=== PATIENT | female | born 1965 | race Caucasian/White ===

== ENCOUNTER 2017-08-06 09:19 | Emergency (ER) | payer OTHER ==
[~2017-08-06 09:19] MED LIST: GUAI600T47 PO; IBUP200C6 PO; PSEU120T10 PO
[2017-08-06] MEDS ORDERED: IV NORMAL SALINE 1,000ML 1,000 ML IV SCH (09:47)
--- NOTE | 2017-08-06 10:02 | PHYS DOC ---
Past History Past Medical History: Diverticulitis, Other Past Surgical History: Smoking: Non-smoker Alcohol Use: None Drug Use: None Adult General Chief Complaint Chief Complaint: RECTAL BLEED HPI HPI 52-year-old female presents with 2 day history of abdominal pain and 1 day history of bright red rectal bleeding. The patient had diffuse, BMP, lower abdominal pain that started yesterday and increased by eating. Overnight she had several bouts of diarrhea. She noticed this morning that she had some bright red blood in her stool. She had diverticulitis several years ago and states that the symptoms seem very similar. She denies fever or chills. She has no other systemic symptoms. She has a history of GERD previously treated by medication. She has changed her diet and no longer needs medication. She has never had a GI bleed. Her colonoscopy 3 years ago showed diverticula, but no other abnormalities as far she is aware. Review of Systems Review of Systems Constitutional: Denies fever or chills [] Eyes: Denies change in visual acuity, redness, or eye pain [] HENT: Denies nasal congestion or sore throat [] Respiratory: Denies cough or shortness of breath [] Cardiovascular: No additional information not addressed in HPI [] GI: Lower abdominal pain and diarrhea [] : Denies dysuria or hematuria [] Musculoskeletal: Denies back pain or joint pain [] Integument: Denies rash or skin lesions [] Neurologic: Denies headache, focal weakness or sensory changes [] Endocrine: Denies polyuria or polydipsia [] All other systems were reviewed and found to be within normal limits, except as documented in this note. Current Medications Current Medications Current Medications Medications (Trade) Dose Ordered Sig/Gini Start Time Stop Time Status Last Admin Dose Admin Iohexol (Omnipaque 300 Mg/ml) 75 ml 1X ONCE 08/06/17 10:00 08/06/17 10:01 UNV Sodium Chloride 1,000 ml @ 1,000 mls/hr Q1H 08/06/17 09:47 08/06/17 10:46 Allergies Allergies Allergies Coded Allergies Type Severity Reaction Last Updated Verified No Known Drug Allergies 06/09/13 No Physical Exam Physical Exam Constitutional: Well developed, well nourished, no acute distress, non-toxic appearance. [] HENT: Normocephalic, atraumatic, bilateral external ears normal, oropharynx moist, no oral exudates, nose normal. [] Eyes: PERRLA, EOMI, conjunctiva normal, no discharge. [] Neck: Normal range of motion, no tenderness, supple, no stridor. [] Cardiovascular:Heart rate regular rhythm, no murmur [] Lungs & Thorax: Bilateral breath sounds clear to auscultation [] Abdomen: Bowel sounds normal, soft, mild diffuse lower abdominal tenderness, no masses, no pulsatile masses. [] Skin: Warm, dry, no erythema, no rash. [] Back: No tenderness, no CVA tenderness. [] Extremities: No tenderness, no cyanosis, no clubbing, ROM intact, no edema. [] Neurologic: Alert and oriented X 3, normal motor function, normal sensory function, no focal deficits noted. [] Psychologic: Affect normal, judgement normal, mood normal. Rectal: No external hemorrhoids, no obvious blood, no pain with exam [] Current Patient Data Vital Signs Vital Signs Date Time Temp Pulse Resp B/P (MAP) Pulse Ox O2 Delivery O2 Flow Rate FiO2 08/06/17 09:19 97.9 79 18 96 Room Air Lab Results Stool occult was positive. EKG EKG [] Radiology/Procedures Radiology/Procedures CT abdomen and pelvis with contrast. HISTORY: Mid abdominal pain, history of diverticulitis CT scan of the abdomen and pelvis was done using 75 mL Omnipaque 300 contrast. The lung bases are clear. There is no effusion. 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 Liver is normal in appearance. There is no calcified gallstone. Spleen and adrenal glands are normal. Pancreas is normal. There is no mass or hydronephrosis in the kidneys. There is no ureteral calculus. There is no free air or bowel obstruction. Appendix is normal. Uterus and ovaries are normal. There is no ascites or adenopathy. The colon is not distended. There is not evidence of an acute diverticulitis. There is no bowel obstruction. There is slight wall thickening of the descending colon, a mild colitis would be possible. IMPRESSION: 1. Mild thickening of the wall the descending colon possible mild colitis. 2. There is not evidence of a diverticulitis. 3. No abdominal or pelvic mass or other acute finding noted. PQRS Compliance Statement: One or more of the following individualized dose reduction techniques were utilized for this examination: 1. Automated exposure control 2. Adjustment of the mA and/or kV according to patient size 3. Use of iterative reconstruction technique Electronically signed by: Mervin Lancaster MD (08/06/2017 10:45 AM) [facility][] Course & Med Decision Making Course & Med Decision Making Pertinent Labs and Imaging studies reviewed. (See chart for details) The patient's CT does not show diverticulitis, however it does show evidence for a mild colitis. We'll treat the patient with Cipro and Flagyl for 10 days in order to prevent further progression of her illness. [] Dragon Disclaimer Dragon Disclaimer This electronic medical record was generated, in whole or in part, using a voice recognition dictation system. Departure Departure: Referrals: ALMA YBARRA MD (PCP) Scripts Metronidazole (FLAGYL) 500 Mg Tablet 1 TAB PO TID for 10 Days, #30 TAB Prov: CLAUDIA ROWE DO 08/06/17 Ciprofloxacin Hcl (CIPRO) 500 Mg Tablet 1 TAB PO BID, #20 TAB Prov: CLAUDIA ROWE DO 08/06/17 CLAUDIA ROWE DO August 06, 2017 10:02
[2017-08-06] MEDS ORDERED: IOHEXOL 300 MG/ML 75 ML VIAL. IV ONE (10:15)
[2017-08-06] MEDS ORDERED: CONTRAST GIVEN MC PRN (10:15)
[2017-08-06 10:26] LABS: BASO # 0.1 x10^3/uL (0.0-0.2); BASO % 1 % (0-3); EOS # 0.2 x10^3/uL (0.0-0.7); EOS % 4 % (0-3); HEMATOCRIT 45.2 % (36.0-47.0); HEMOGLOBIN 15.7 g/dL (12.0-15.5); LYMPH % 17 % (24-48); MEAN CORPUSCULAR HEMOGLOBIN 31 pg (25-35); MEAN CORPUSCULAR HGB CONC 35 g/dL (31-37); MEAN CORPUSCULAR VOLUME 90 fL (79-100); MONO # 0.3 x10^3/uL (0.0-1.1); MONO % 5 % (0-9); NEUT # 4.5 x10^3uL (1.8-7.7); NEUT % 74 % (31-73); PLATELET COUNT 266 x10^3/uL (140-400); RED BLOOD COUNT 5.02 x10^6/uL (3.50-5.40); RED CELL DISTRIBUTION WIDTH 12.4 % (11.5-14.5); WHITE BLOOD COUNT 6.1 x10^3/uL (4.0-11.0)
[2017-08-06] MEDS ORDERED: HYDROmorphone PF 2 MG/ML VIAL IM ONE (10:30)
[2017-08-06 10:48] LABS: BILIRUBIN,URINE NEG (NEG); CLARITY,URINE CLEAR; COLOR,URINE YELLOW; GLUCOSE,URINE NEG (NEG); NITRITE,URINE NEG (NEG); UROBILINOGEN,URINE 0.2 mg/dL (0.2 mg/dL)
--- NOTE | 2017-08-06 10:48 | RAD ---
CT abdomen and pelvis with contrast. HISTORY: Mid abdominal pain, history of diverticulitis CT scan of the abdomen and pelvis was done using 75 mL Omnipaque 300 contrast. The lung bases are clear. There is no effusion. 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 Liver is normal in appearance. There is no calcified gallstone. Spleen and adrenal glands are normal. Pancreas is normal. There is no mass or hydronephrosis in the kidneys. There is no ureteral calculus. There is no free air or bowel obstruction. Appendix is normal. Uterus and ovaries are normal. There is no ascites or adenopathy. The colon is not distended. There is not evidence of an acute diverticulitis. There is no bowel obstruction. There is slight wall thickening of the descending colon, a mild colitis would be possible. IMPRESSION: 1. Mild thickening of the wall the descending colon possible mild colitis. 2. There is not evidence of a diverticulitis. 3. No abdominal or pelvic mass or other acute finding noted. PQRS Compliance Statement: One or more of the following individualized dose reduction techniques were utilized for this examination: 1. Automated exposure control 2. Adjustment of the mA and/or kV according to patient size 3. Use of iterative reconstruction technique Electronically signed by: Mervin Lancaster MD (08/06/2017 10:45 AM) [facility]
[2017-08-06] MEDS ORDERED: METR500T PO (11:01)
[2017-08-06] MEDS ORDERED: CIPR500T94 PO (11:01)
[2017-08-06 11:14] LABS: FECAL OB PT POSITIVE (NEG)
[2017-08-06 11:20] VITALS: BP 132/82
== END 2017-08-06 11:27 | disposition home or self-care (01) ==
LOC: ER 09:19
DX: K52.9 Noninfective gastroenteritis and colitis, unspecified (principal); K21.9 Gastro-esophageal reflux disease without esophagitis; Z98.890 Other specified postprocedural states
CPT/HCPCS: 36415; 74177; 80048; 81003; 82274; 85025; 96360; 96372; 99285; J1170; Q9967; J7030

== ENCOUNTER 2019-09-23 19:40 | Emergency (ER) | payer OTHER ==
[~2019-09-23] VITALS: Ht 162.6 cm; Wt 86.3 kg
[~2019-09-23 19:40] MED LIST changes: +CIPR500T94 PO; +IBUP-1390 PO; -IBUP200C6 PO; +METR500T PO
--- NOTE | 2019-09-23 20:26 | PHYS DOC ---
Past History Past Medical History: Diverticulitis Past Surgical History: Smoking: Non-smoker Alcohol Use: None Drug Use: None General Adult EDM: Chief Complaint: ABDOMINAL PAIN HPI: HPI: 54-year-old female presents with abdominal pain and diarrhea. The patient has been having lower abdominal pain worse in the right lower quadrant all day. She is also had multiple episodes of diarrhea. She comes in tonight because she has had some bright red blood in her stool. There is no pain with defecation. Her anus is sore at this time. Patient has a history of diverticulitis several years ago. She still has her appendix. The abdominal pain is a deep cramping sensation moderate in intensity. She denies fever chills. Review of Systems: Review of Systems: Constitutional: Denies fever or chills Eyes: Denies change in visual acuity HENT: Denies nasal congestion or sore throat Respiratory: Denies cough or shortness of breath Cardiovascular: Denies chest pain or edema GI: RLQ abdominal pain, nausea, bloody stools and diarrhea : Denies dysuria Musculoskeletal: Denies back pain or joint pain Integument: Denies rash Neurologic: Denies headache, focal weakness or sensory changes Endocrine: Denies polyuria or polydipsia Lymphatic: Denies swollen glands Psychiatric: Denies depression or anxiety Heart Score: Risk Factors: Risk Factors: DM, Current or recent (<one month) smoker, HTN, HLP, family history of CAD, obesity. Risk Scores: Score 0 - 3: 2.5% MACE over next 6 weeks - Discharge Home Score 4 - 6: 20.3% MACE over next 6 weeks - Admit for Clinical Observation Score 7 - 10: 72.7% MACE over next 6 weeks - Early Invasive Strategies Current Medications: Current Meds: Current Medications Medications (Trade) Dose Ordered Sig/Gini Start Time Stop Time Status Last Admin Dose Admin Sodium Chloride 1,000 ml @ 1,000 mls/hr 1X ONCE 09/23/19 20:30 09/23/19 21:29 UNV 09/23/19 20:19 1,000 MLS/HR Allergies: Allergies: Allergies Coded Allergies Type Severity Reaction Last Updated Verified No Known Drug Allergies 06/09/13 No Physical Exam: PE: Constitutional: Well developed, obese, well nourished, no acute distress, non-toxic appearance. [] HENT: Normocephalic, atraumatic, bilateral external ears normal, oropharynx moist, no oral exudates, nose normal. [] Eyes: PERRLA, EOMI, conjunctiva normal, no discharge. [] Neck: Normal range of motion, no tenderness, supple, no stridor. [] Cardiovascular: Heart rate regular rhythm, no murmur [] Lungs & Thorax: Bilateral breath sounds clear to auscultation [] Abdomen: Bowel sounds normal, soft, RLQ and suprapubic tenderness, no masses, no pulsatile masses. [] Skin: Warm, dry, no erythema, no rash. [] Back: No tenderness, no CVA tenderness. [] Extremities: No tenderness, no cyanosis, no clubbing, ROM intact, no edema. [] Neurologic: Alert and oriented X 3, normal motor function, normal sensory function, no focal deficits noted. [] Psychologic: Affect normal, judgement normal, mood normal. [] Current Patient Data: Vital Signs: Vital Signs Date Time Temp Pulse Resp B/P (MAP) Pulse Ox O2 Delivery O2 Flow Rate FiO2 09/23/19 19:50 99.2 95 18 132/100 (111) 97 Room Air EKG: EKG: [] Radiology/Procedures: Radiology/Procedures: [] Impressions: CT abdomen and pelvis with contrast PQRS statement: CT scans at this facility use dose reduction including either automated exposure control, iterative reconstructions, and /or weight based radiation dosing via mA and kV modification when appropriate to reduce radiation dose to as low as reasonably achievable. Contrast: 75 mL Omnipaque 300 intravenous contrast. HISTORY: Right lower quadrant abdominal pain, GI bleeding, diarrhea with blood, diverticulitis. Abdomen findings: Comparison is made to CT abdomen and pelvis August 06, 2017. Lower lumbar disc bulges and bulky facet spurs with spinal canal and neural foraminal stenoses particularly at L4-5 and L5-S1 likely severe. Liver, gallbladder, pancreas, adrenal glands, spleen and kidneys are unremarkable. Mild bilateral renal pelviectasis. Appendix is negative. No bowel obstruction. Sigmoid diverticulitis with segmental colic wall thickening and surrounding edema about a 1 cm inflamed diverticulum no pneumoperitoneum or abscess evident. No abdominal fluid. No adenopathy. Aorta calcified plaque. Pelvis findings: Uterus, ovaries, bladder, rectum and bones are unremarkable. No pelvic fluid or fluid collection. No adenopathy. IMPRESSION: 1. Acute sigmoid diverticulitis. No abscess evident. 2. Appendix is negative. Electronically signed by: Too Germain MD (09/23/2019 9:15 PM) [facility] [place] AND SIGNED BY: TOO GERMAIN MD DATE: 09/23/192114 CC: CLAUDIA ROWE DO; ALMA YBARRA MD ~ Course & Med Decision Making: Course & Med Decision Making Pertinent Labs and Imaging studies reviewed. (See chart for details) The patient's labs are unremarkable. Her CT scan shows acute diverticulitis. I will treat her with Augmentin for 10 days. We will give the first dose in the ED. She is stable for discharge at this time. [] Dragon Disclaimer: Dragon Disclaimer: This electronic medical record was generated, in whole or in part, using a voice recognition dictation system. Departure Departure: Impression: Primary Impression: Diverticulitis Disposition: 01 HOME/RESIDENCE PRIOR TO ADM Condition: STABLE Referrals: ALMA YBARRA MD (PCP) Patient Instructions: Diverticulitis, [id number] Scripts Amoxicillin/Potassium Clav (AUGMENTIN 875-125 TABLET) 1 Each Tablet 1 TAB PO BID for diverticulitis for 10 Days, #20 TAB 0 Refills Prov: CLAUDIA ROWE DO 09/23/19 Justification of Admission: Justification of Admission: Justification of Admission Dx: N/A CLAUDIA ROWE DO Sep 23, 2019 20:26
[2019-09-23] MEDS ORDERED: ONDANSETRON PF 4 MG/2 ML VIAL. IVP ONE (20:30)
[2019-09-23] MEDS ORDERED: IOHEXOL 300 MG/ML 75 ML VIAL. IV ONE (20:30)
[2019-09-23] MEDS ORDERED: IV NORMAL SALINE 1,000ML 1,000 ML IV ONE (20:30)
[2019-09-23 20:32] LABS: BASO # 0.1 x10^3/uL (0.0-0.2); BASO % 1 % (0-3); EOS # 0.2 x10^3/uL (0.0-0.7); EOS % 2 % (0-3); HEMATOCRIT 43.8 % (36.0-47.0); HEMOGLOBIN 14.8 g/dL (12.0-15.5); LYMPH # 1.2 x10^3/uL (1.0-4.8); LYMPH % 11 % (24-48); MEAN CORPUSCULAR HEMOGLOBIN 31 pg (25-35); MEAN CORPUSCULAR HGB CONC 34 g/dL (31-37); MEAN CORPUSCULAR VOLUME 90 fL (79-100); MONO # 0.6 x10^3/uL (0.0-1.1); MONO % 5 % (0-9); NEUT % 82 % (31-73); PLATELET COUNT 264 x10^3/uL (140-400); RED BLOOD COUNT 4.87 x10^6/uL (3.50-5.40); RED CELL DISTRIBUTION WIDTH 12.6 % (11.5-14.5)
[2019-09-23 20:39] LABS: CALCIUM 9.3 mg/dL (8.5-10.1); CREATININE 1.1 mg/dL (0.6-1.0); GFR 51.6; POTASSIUM 3.9 mmol/L (3.5-5.1)
[2019-09-23 20:44] LABS: TOTAL BILIRUBIN 0.5 mg/dL (0.2-1.0); TOTAL PROTEIN 8.1 g/dL (6.4-8.2)
--- NOTE | 2019-09-23 21:18 | RAD ---
CT abdomen and pelvis with contrast PQRS statement: CT scans at this facility use dose reduction including either automated exposure control, iterative reconstructions, and /or weight based radiation dosing via mA and kV modification when appropriate to reduce radiation dose to as low as reasonably achievable. Contrast: 75 mL Omnipaque 300 intravenous contrast. HISTORY: Right lower quadrant abdominal pain, GI bleeding, diarrhea with blood, diverticulitis. Abdomen findings: Comparison is made to CT abdomen and pelvis August 06, 2017. Lower lumbar disc bulges and bulky facet spurs with spinal canal and neural foraminal stenoses particularly at L4-5 and L5-S1 likely severe. Liver, gallbladder, pancreas, adrenal glands, spleen and kidneys are unremarkable. Mild bilateral renal pelviectasis. Appendix is negative. No bowel obstruction. Sigmoid diverticulitis with segmental colic wall thickening and surrounding edema about a 1 cm inflamed diverticulum no pneumoperitoneum or abscess evident. No abdominal fluid. No adenopathy. Aorta calcified plaque. Pelvis findings: Uterus, ovaries, bladder, rectum and bones are unremarkable. No pelvic fluid or fluid collection. No adenopathy. IMPRESSION: 1. Acute sigmoid diverticulitis. No abscess evident. 2. Appendix is negative. Electronically signed by: Gabino Germain MD (09/23/2019 9:15 PM) [facility]
[2019-09-23 21:40] LABS: BILIRUBIN,URINE NEG (NEG); CLARITY,URINE CLEAR; COLOR,URINE STRAW; GLUCOSE,URINE NEG (NEG)
[2019-09-23 21:41] LABS: BACTERIA,URINE FEW /HPF (0-FEW); NITRITE,URINE NEG (NEG); RBC,URINE OCC /HPF (0-2); SQUAMOUS EPITHELIAL CELL,UR OCC /LPF; UROBILINOGEN,URINE 0.2 mg/dL (0.2 mg/dL)
[2019-09-23] MEDS ORDERED: AMOX1TAB61 PO (21:47)
[2019-09-23] MEDS ORDERED: HYDROcodone/APAP 5/325MG 1 TAB TABLET PO ONE (22:00)
[2019-09-23] MEDS ORDERED: AMOXICILLIN/K CLAV 875/125MG TABLET. PO ONE (22:00)
[2019-09-23] MEDS ORDERED: HYDR-3165 PO (22:01)
[2019-09-23 22:16] VITALS: BP 129/85
== END 2019-09-23 22:18 | disposition home or self-care (01) ==
LOC: ER 19:40
DX: K57.32 Diverticulitis of large intestine without perforation or abscess without bleeding (principal); R19.7 Diarrhea, unspecified; Z98.890 Other specified postprocedural states
CPT/HCPCS: 36415; 74177; 80053; 81001; 85025; 87086; 96361; 96374; 99285; J2405; J7030; Q9967

== ENCOUNTER 2021-01-03 16:02 | Emergency (ER) | payer OTHER ==
[~2021-01-03] VITALS: Ht 162.6 cm; Wt 82.8 kg
[~2021-01-03 16:02] MED LIST changes: +AMOX1TAB61 PO; +HYDR-3165 PO
--- NOTE | 2021-01-03 17:04 | EKG ---
[address] [address] Test Date: 2021-01-03 Test Time: 16:14:29 Pat Name: TIM CORDOBA Department: Room: Gender: F Curriculum Advisory Teacher: JULIANA : 1965 Requested By: BUCKY HUMPHREY Order Number: [id number] Reading MD: Arnulfo Sanders MD Measurements Intervals [place] Rate: 68 P: 43 ME: 152 QRS: 25 QRSD: 90 T: 15 QT: 352 QTc: 378 Interpretive Statements SINUS RHYTHM Electronically Signed On 01-11-2021 12:07:53 CDT by Arnulfo Sanders MD
[2021-01-03 17:18] LABS: BASO % 1 % (0-3); EOS # 0.3 x10^3/uL (0.0-0.7); EOS % 5 % (0-3); HEMATOCRIT 40.7 % (36.0-47.0); HEMOGLOBIN 13.8 g/dL (12.0-15.5); LYMPH # 1.6 x10^3/uL (1.0-4.8); LYMPH % 29 % (24-48); MEAN CORPUSCULAR HEMOGLOBIN 31 pg (25-35); MEAN CORPUSCULAR HGB CONC 34 g/dL (31-37); MEAN CORPUSCULAR VOLUME 92 fL (79-100); MONO # 0.4 x10^3/uL (0.0-1.1); MONO % 8 % (0-9); NEUT # 3.2 x10^3uL (1.8-7.7); NEUT % 58 % (31-73); PLATELET COUNT 202 x10^3/uL (140-400); RED BLOOD COUNT 4.45 x10^6/uL (3.50-5.40); RED CELL DISTRIBUTION WIDTH 12.7 % (11.5-14.5); WHITE BLOOD COUNT 5.5 x10^3/uL (4.0-11.0)
--- NOTE | 2021-01-03 17:19 | PHYS DOC ---
Past History Past Medical History: Diverticulitis Past Surgical History: Smoking: Non-smoker Alcohol Use: None Drug Use: None General Adult EDM: Chief Complaint: MULTIPLE COMPLAINTS HPI: HPI: 55-year-old female with no significant past medical history, presents to the ED with complaints of dry "cough, horrible headache, sore throat, chills, chest heaviness and feeling tired, " symptoms started at 9 AM this morning. Reports s he has received her meningitis vaccine. 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 Headache has been a gradual onset in nature. Denies any head or neck injury. Family history of hypertension and atrial fibrillation in patient's father. No personal or family history of AAA, AAD, CTD (eh[place] or marfans), cardiac arrhythmias (need for AICD), CAD, sudden or unexplainable (under 50 years of age or with exertion), or clotting disorders. Review of Systems: Review of Systems: Constitutional: Denies fever or chills Eyes: Denies change in visual acuity HENT: Denies nasal congestion or rhinorrhea Respiratory: Denies productive cough cough or shortness of breath Cardiovascular: Denies hemoptysis, syncope or edema GI: Denies abdominal pain, nausea, vomiting, bloody stools or diarrhea : Denies dysuria or vaginal bleeding Musculoskeletal: Denies back pain or joint pain Integument: Denies rash or diaphoresis Neurologic: Denies neck stiffness, focal weakness or sensory changes Endocrine: Denies polyuria or polydipsia Lymphatic: Denies swollen glands Psychiatric: Denies depression or anxiety Allergies: Allergies: Allergies Coded Allergies Type Severity Reaction Last Updated Verified No Known Drug Allergies 01/03/21 No Physical Exam: PE: Constitutional: Well developed, well nourished, no acute distress, non-toxic appearance. HENT: Normocephalic, atraumatic, mild pharyngeal erythema with edematous uvula Eyes: PERRLA, EOMI, conjunctiva normal, no discharge. Neck: Normal range of motion, supple, Cardiovascular: S1/2 present, regular rhythm Lungs & Thorax: Speaking in full sentences, bilateral equal chest rise, no tachypnea or increased work of breathing Abdomen: soft, no tenderness, Skin: Warm, dry, no erythema, no rash. [] Back: No tenderness, no CVA tenderness. [] Extremities: No tenderness, no cyanosis, no lower extremity edema Neurologic: Alert and oriented X 3, normal motor function, normal sensory function, no focal deficits noted. [] Psychologic: Affect normal, judgement normal, mood normal. [] Current Patient Data: Vital Signs: Vital Signs Date Time Temp Pulse Resp B/P (MAP) Pulse Ox O2 Delivery O2 Flow Rate FiO2 01/03/21 16:14 98.3 65 18 131/94 (106) 99 Room Air EKG: EKG: Sinus rhythm 68 bpm, no axis deviation, normal intervals, T wave inversion lead III, no ST elevation or ST depression Radiology/Procedures: Radiology/Procedures: []IMAGING REPORT Signed PATIENT: TIM CORDOBA AACCOUNT: [id number] : 1965 LOCATION: ER AGE: 55 SEX: F EXAM STATUS: REG ER ORD. PHYSICIAN: BUCKY HUMPHREY DO REASON: pui PROCEDURE: PORTABLE CHEST 1V XR CHEST 1V Clinical History: Reason: pui / Spl. Instructions: / History: Technique: AP view of the chest was obtained at 01/03/2021 5:04 PM. Comparison: None. Findings: The cardiomediastinal silhouette is normal. The pulmonary vasculature is normal. The lungs and pleural margins are clear. Impression: No evidence of an acute cardiopulmonary process. Electronically signed by: James Amanda III, MD (01/03/2021 5:28 PM) [facility] DICTATED AND SIGNED BY: JAMES AMANDA III, MD DATE: 01/03/21 172 CC: ALMA YBARRA MD; BUCKY HUMPHREY DO ~MTH0 0 Heart Score: C/O Chest Pain: Yes HEART Score for Chest Pain: HEART Score for Chest Pain Response (Comments) Value History Slighlty/Non-Suspicious 0 ECG Nonspecific Repolarizatio 1 Age >45 - < 65 1 Risk Factors No Risk Factors 0 Troponin < Normal Limit 0 Total 2 Risk Factors: Risk Factors: DM, Current or recent (<one month) smoker, HTN, HLP, family history of CAD, obesity. Risk Scores: Score 0 - 3: 2.5% MACE over next 6 weeks - Discharge Home Score 4 - 6: 20.3% MACE over next 6 weeks - Admit for Clinical Observation Score 7 - 10: 72.7% MACE over next 6 weeks - Early Invasive Strategies Course & Med Decision Making: Course & Med Decision Making Pertinent Labs and Imaging studies reviewed. (See chart for details) COVID-19 CRITERIA: The patient was evaluated during the global COVID-19 pandemic, and that diagnosis was suspected/considered upon their initial presentation. Their evaluation, treatment and testing was consistent with current guidelines for patients who present with complaints or symptoms that may be related to COVID-19. Concern for URI, Covid test pending, rapid strep negative. Headache has been gradual onset nature and chest discomfort is atypical. Patient calm, in no distress and very appreciative of her care in the ed. states she was going to go to an urgent care but is pleased she came to the ed. physical exam concerning for early uvulitis. Chest x-ray with no infiltrates. Patient does not meet SIRS criteria. Unremarkable labs including troponin-low risk for Mace. Will discharge home with strict ED return precautions were given for chest pressure pain, diaphoresis, nausea, vomiting, stroke symptoms, dyspnea, hemoptysis or leg swelling. Encouraged urgent outpatient follow-up with PMD for reevaluation. Life-threatening processes were considered but are low suspicion at this time, given history, physical exam and ED workup. Pt was educated on all prescription medications and adverse effects. All patient's questions were answered and pt was stable at time of discharge. Life/limb-threatening differential includes but is not limited to, airway emerg ency or respiratory distress/ARDS or fatigue or head or neck swelling, toxidrome, sepsis/shock, angioedema, anaphylaxis, congestive heart failure, myocarditis, acute myocardial infarction, dysrhythmias, cardiomyopathy, venous thromboembolism, pulmonary emboli, acute necrotizing hemorrhagic encephalopathy ,cerebral venous thrombosis, meningitis, encephalitis or CVA. I have spoken with the patient and/or caregivers. I explained the patient's condition, diagnoses and treatment plan based on the information available to me at this time. I have answered the patient and/or caregiver's questions and addressed any concerns. The patient and/or caregivers have a good understanding of patient's diagnosis, condition and treatment plan as can be expected at this point. Vital signs have been stable. Patient's condition is stable and appropriate for discharge from the emergency department. Patient will pursue further outpatient evaluation with primary care physician or other designated or consulting physician as outlined in the discharge instructions. The patient and/or caregivers are agreeable to this plan of care and follow-up instructions have been explained in detail. The patient and/or caregivers have received these instructions in written form and have expressed an understanding of the discharge instructions. The patient and/or caregivers are aware that any significant change of condition or worsening of symptoms should prompt immediate return to this or the closest emergency department or call to 911. Desean Disclaimer: Desean Disclaimer: This electronic medical record was generated, in whole or in part, using a voice recognition dictation system. Departure Departure: Impression: Primary Impression: Person under investigation for COVID-19 Additional Impressions: Uvulitis Atypical chest pain Disposition: HOME / SELF CARE / HOMELESS Condition: STABLE Referrals: ALMA YBARRA MD (PCP) Follow-up with your PCP for routine care and reevaluation Patient Instructions: Chest Pain (Nonspecific), Uvulitis Additional Instructions: Return to ED immediately if your oxygen level drops below 90% (purchase a pulse oximetry at a medical supply store), difficulties breathing including rapid breathing or increased work of breathing (skin sucking under ribs), chest pain or stroke-like symptoms (facial droop, speech changes, arm/leg weakness). You have been tested for or diagnosed with COVID-19. It is an infection caused by a new type of coronavirus. COVID-19 will cause cold-like or mild flu symptoms in most. It can cause more severe symptoms like problems breathing in some. There is no treatment for COVID-19. The body will clear the infection over time. Self-care will help to ease discomfort. Steps to Take: Self-Care Rest as needed. Healthy habits may help you feel better. Steps include: Choose healthy foods including fruits and vegetables. Drink water throughout the day. Get plenty of sleep each night. If you smoke, try to quit. It may ease breathing. Avoid alcohol. Keep Others Healthy The virus can spread to others. Droplets are released every time you sneeze or cough. The droplets can get into the mouth, nose, or eyes of people near you and lead to infection. To lower the chances of spreading COVID-19 to others: Stay at home until your doctor has said it is safe to leave. If you tested positive this will mean staying isolated until both of the following are true: At least 7 days have passed since the start of illness. You are free of fever for at least 72 hours without the use of medicine. During this time: - Avoid public areas, events, or transportation. Do not return to work or school until your doctor has said it is safe to do so. - Call ahead if you need to go to a medical center. Let them know you may have COVID-19. It will help them guide you where to go. They may also ask you to wear a facemask when you come to the office. - If you call for emergency medical services, let them know you may have COVID- 19. While at home: - Try to avoid close contact with others. Stay about 6 feet away. - If possible, spend most of your time in a separate room from others. - Use a face mask if you will be in close contact with others such as sharing a room or vehicle. - Have someone wipe down common surfaces in the home. Use household contract specialist every day on areas like doorknobs, counters, or sinks. - Cough or sneeze into a tissue. Throw the tissue away right after use. If a tissue is not available, cough or sneeze into your elbow. - Wash your hands often. Wash them after sneezing or coughing. Use soap and water and wash for at least 20 seconds. Alcohol based hand exhibit cleaner can be used if soap and water is not available. - Do not prepare food for others. Avoid sharing personal items like forks, spoons, or toothbrushes. - Avoid close contact with pets while you are sick. There is no evidence of the virus passing to pets. This is a safety step until more is known about this virus. Isolation can be frustrating. Social interaction can help. Keep in touch with friends and family through phone and tech options. You can still interact with others in your home, just keep a safe distance of about 6 feet. Follow-up: Your doctors office will check in with you to see if there are any changes in your health. You may be asked to keep track of symptoms to share with them. They will also let you know when you are clear to be in public again. Problems to Look Out For: Contact your doctor if your recovery is not going as you expect. Get emergency care if you have problems such as: - Trouble breathing - Nonstop chest pain or pressure - Changes in awareness, confusion, or problems waking - Lips or face have bluish color - Worsening of symptoms If you think you have an emergency, call for emergency medical services right away. As taken from [facility],BUCKY Campo DO Jan 03, 2021 17:18
[2021-01-03 17:27] LABS: CALCIUM 9.5 mg/dL (8.5-10.1); CREATININE 0.7 mg/dL (0.6-1.0); GFR 86.6; POTASSIUM 3.8 mmol/L (3.5-5.1)
--- NOTE | 2021-01-03 17:31 | RAD ---
XR CHEST 1V Clinical History: Reason: pui / Spl. Instructions: / History: Technique: AP view of the chest was obtained at 01/03/2021 5:04 PM. Comparison: None. Findings: The cardiomediastinal silhouette is normal. The pulmonary vasculature is normal. The lungs and pleura l margins are clear. Impression: No evidence of an acute cardiopulmonary process. Electronically signed by: German Oro III, MD (01/03/2021 5:28 PM) [facility]
[2021-01-03 17:34] LABS: ALBUMIN 3.7 g/dL (3.4-5.0); ALBUMIN/GLOBULIN RATIO 1.1 (1.0-1.7); MAGNESIUM 2.3 mg/dL (1.8-2.4); TOTAL BILIRUBIN 0.4 mg/dL (0.2-1.0); TOTAL PROTEIN 7.2 g/dL (6.4-8.2)
[2021-01-03] MEDS ORDERED: DEXAMETHASONE SOD PHOS 10 MG/ML VIAL. IV ONE (18:00)
[2021-01-03] MEDS ORDERED: diphenhydrAMINE 50 MG/ML VIAL IVP ONE (18:00)
[2021-01-03] MEDS ORDERED: KETOROLAC 15 MG/ML VIAL. IVP ONE (18:00)
[2021-01-03] MEDS ORDERED: PROCHLORPERAZINE 10 MG/2 ML VIAL. IV ONE (18:00)
[2021-01-03 18:13] VITALS: BP 139/94
== END 2021-01-03 18:46 | disposition home or self-care (01) ==
LOC: ER 16:02
DX: R07.89 Other chest pain (principal); K12.2 Cellulitis and abscess of mouth; Z20.822 Contact with and (suspected) exposure to COVID-19; Z98.890 Other specified postprocedural states
CPT/HCPCS: 71045; 80053; 83735; 84484; 85025; 87070; 87880; 93005; 96374; 96375; 99285; C9803; J0780; J1100; J1200; J1885; U0003